=== PATIENT | male | born 1990 | race African-American/Black ===

== ENCOUNTER 2016-10-28 15:43 | Emergency (ER) | payer OTHER ==
[~2016-10-28] VITALS: Ht 185.4 cm; Wt 104.3 kg
[~2016-10-28 15:43] MED LIST: BLM PO; MEDROL DOSEPAK1 PAC PO; VITAMIN D50000 IU PO; ZITHROMAX Z PA250 MG PO
[2016-10-28 17:18] VITALS: BP 121/80
[2016-10-28] MEDS ORDERED: BROMFED DM COU118 M1 PO (17:30)
--- NOTE | 2016-10-28 17:30 | ED DYSPNEA/ASTHMA COMPLAINT ---
History of Present Illness General Chief Complaint: Upper Respiratory Sx/Fever Stated Complaint: COUGH AND CONGESTION Source: patient Exam Limitations: no limitations Vital Signs & Intake/Output Vital Signs & Intake/Output Vital Signs Date Time Temp Pulse Resp B/P Pulse O2 O2 Flow FiO2 Ox Delivery Rate 10/28 1718 97.9 80 20 121/80 98 Room Air 10/28 1552 97.8 82 16 122/75 97 Room Air Allergies Coded Allergies: NO KNOWN ALLERGIES (05/19/14) Reconcile Medications Albuterol Sulfate (Proventil Hfa) 90 MCG HFA.AER.AD 2 PUF INH Q4 sob Azithromycin (Zithromax) 250 MG TABLET 1 DP PO AD bronchitis 2 the first day followed by 1 for days 2-5 Brompheniramine/Pseudoephed/Dm (Bromfed Dm Cough Syrup) 2 MG-30 MG-10 MG/5 ML SYRUP 5-10 ML PO Q4-6 PRN PRN cough Prednisone (Deltasone) 20 MG TABLET 1 TAB PO BID BRONCHITIS Triage Note: PT STATES HE HAS HAD A COUGH AND COLD FOR 2 WEEKS. PT STATES HE IS COUGHING UP GREEN SPUTUM. PT STATSE ON AND OFF FEVERS. Triage Nurses Notes Reviewed? yes Onset: Abrupt Duration: day(s):, constant, continues in ED Timing: recent history HPI: 26-year-old male comes into emergency room with complaints of cough, yellow mucus production, runny nose, and wheezing has been going on for the past week. Denies any vomiting. Denies any other associated symptoms. Denies any history of smoking. Nothing seems to make the symptoms better or worse. Past History Travel History Traveled to [place] past 21 day No Medical History Any Pertinent Medical History? see below for history Neurological: NONE EENT: NONE Cardiovascular: NONE Respiratory: NONE Gastrointestinal: NONE Hepatic: NONE Renal: NONE Musculoskeletal: NONE Psychiatric: NONE Endocrine: NONE Blood Disorders: NONE Cancer(s): NONE REFINER OPERATOR/Reproductive: NONE Tetanus Vaccine: 03/27/15 Surgical History Surgical History: N Psychosocial History What is your primary language Turkmen Tobacco Use: Never used ETOH Use: occasional use Illicit Drug Use: denies illicit drug use Family History Hx Contributory? No Review of Systems Review of Systems Constitutional: Reports: no symptoms. EENTM: Reports: see HPI. Respiratory: Reports: see HPI. Cardiovascular: Reports: no symptoms. GI: Reports: no symptoms. Genitourinary: Reports: no symptoms. Musculoskeletal: Reports: no symptoms. Skin: Reports: no symptoms. Neurological/Psychological: Reports: no symptoms. Hematologic/Endocrine: Reports: no symptoms. Immunologic/Allergic: Reports: no symptoms. All Other Systems: Reviewed and Negative Physical Exam Physical Exam General Appearance: well developed/nourished, no apparent distress, alert Head: atraumatic, normal appearance Eyes: Bilateral: normal appearance, EOMI. Ears, Nose, Throat: normal pharynx, normal ENT inspection Neck: normal inspection Respiratory: no respiratory distress, decreased breath sounds, rhonchi Cardiovascular: regular rate/rhythm Extremities: normal inspection Neurologic/Psych: awake, alert, oriented x 3, normal gait, normal mood/affect Skin: intact, normal color Core Measures ACS in differential dx? No Severe Sepsis Present: No Septic Shock Present: No Progress Differential Diagnosis: asthma, AMI, bronchitis, costochondritis, CHF, COPD, musculoskeletal pain, pericarditis, pulmonary embolism, pneumonia, pneumothorax, rib fracture, unstable angina Plan of Care: Current Medications Sig/Amy Start time Last Medication Dose Stop Time Status Admin Albuterol Sulfate 3 ML ONCE ONE 10/28 1729 AC (Proventil) 10/28 1730 Ipratropium [place] 2.5 ML ONCE ONE 10/28 1729 AC (Atrovent) 10/28 1730 Prednisone 60 MG ONCE ONE 10/28 1729 AC 10/28 1730 Initial ED EKG: none Departure Departure Disposition: HOME OR SELF CARE Condition: Stable Clinical Impression Primary Impression: Bronchitis Referrals: PIERRE THOMAS APRN (PCP/Family) Additional Instructions: Take azithromycin, albuterol, Bromfed, and prednisone as prescribed. Follow-up with your regular doctor. Return if any concerns worsening symptoms. Please go over all results of today's visit with your primary care doctor. Contact your primary care doctor to let them know you were here in the emergency room. There may be nonspecific findings which may not be related to your visit today here in the emergency room but may require further evaluation and chronic monitoring by your primary care doctor. If you had a laceration today the chance of foreign body always remains. You should follow-up with your primary care doctor for recheck in 3-5 days for a wound check. If you had an x-ray done there is a chance that a fracture could have been missed on initial read and you should follow-up with your primary care doctor for repeat x-rays if symptoms persist. If your blood pressure was elevated here in the emergency room please have rechecked by her primary care doctor within the next 48 hours by your primary care doctor. If you were prescribed a narcotic here in the emergency room or any type of controlled substances you're not allowed to drive while taking this medication or operate any type of heavy machinery. Narcotics can make you feel lightheaded dizziness nausea and can cause constipation. You may need to tack picker a stool softener. Thank you for choosing [facility] emergency room. Please return to the emergency room immediately if you have any other concerns worsening of symptoms. Departure Forms: Customer Survey General Discharge Information Prescriptions: Current Visit Scripts Brompheniramine/Pseudoephed/Dm (Bromfed Dm Cough Syrup) 5-10 ML PO Q4-6 PRN PRN cough #120 ML Albuterol Sulfate (Proventil Hfa) 2 PUF INH Q4 #1 INHAL Azithromycin (Zithromax) 1 DP PO AD #6 TAB 2 the first day followed by 1 for days 2-5 Prednisone (Deltasone) 1 TAB PO BID #8 MG Comments 10/28/2016 6:35:50 PM Patient clinically looks well. Nontoxic-appearing. Patient feels better after nebulizer treatment. Lungs sounds clear after nebulizer treatment. Symptoms most consistent with bronchitis. Return if any other concerns. Patient understands and agrees with plan of care. Critical Care Note Critical Care Note Critical Care Time: non-applicable
[2016-10-28] MEDS ORDERED: PROVENTIL HFA6.7 GM INH (17:31)
[2016-10-28] MEDS ORDERED: DELTASONE20 MG PO (17:31)
[2016-10-28] MEDS ORDERED: ZITHROMAX250 M2 PO (17:31)
== END 2016-10-28 18:02 ==
LOC: ERH 15:43
DX: J40 Bronchitis, not specified as acute or chronic (principal)
CPT/HCPCS: 1263

== ENCOUNTER 2018-05-14 04:59 | Emergency (ER) | payer OTHER ==
[~2018-05-14 04:59] MED LIST changes: +AMOXICILLIN875 M1 PO; +BROMFED DM COU118 M1 PO; +DELTASONE20 MG PO; +HYDROCODON-ACE1 EAC2 PO; +IBUPROFEN800 M1 PO; +PROVENTIL HFA6.7 GM INH; +ZITHROMAX250 M2 PO
--- NOTE | 2018-05-14 05:22 | ED GI/GU/ABDOMINAL COMPLAINT ---
History of Present Illness General Chief Complaint: Abdominal Pain/Flank Pain Stated Complaint: ABD PAIN Source: patient Exam Limitations: no limitations Vital Signs & Intake/Output Vital Signs & Intake/Output . Allergies Coded Allergies: NO KNOWN ALLERGIES (05/19/14) Reconcile Medications Albuterol Sulfate (Proventil Hfa) 90 MCG HFA.AER.AD 2 PUF INH Q4 sob Amoxicillin 875 MG TABLET 1 TAB PO BID dental pain Azithromycin (Zithromax) 250 MG TABLET 1 DP PO AD bronchitis 2 the first day followed by 1 for days 2-5 Brompheniramine/Pseudoephed/Dm (Bromfed Dm Cough Syrup) 2 MG-30 MG-10 MG/5 ML SYRUP 5-10 ML PO Q4-6 PRN PRN cough Ciprofloxacin HCl (Cipro) 500 MG TABLET 1 TAB PO BID INFECTION Diphenoxylate HCl/Atropine (Lomotil 2.5-0.025 MG Tablet) 2.5 MG-0.025 MG TABLET 1 TAB PO 4 TIMES/DAY diarrhea twenty... [id number] Hydrocodone/Acetaminophen (Hydrocodon-Acetaminophen 5-325) 5 MG-325 MG TABLET 1-2 TAB PO Q4-6 PRN PRN pain Ibuprofen 800 MG TABLET 1 TAB PO TID pain Metronidazole (Flagyl) 500 MG TABLET 1 TAB PO 4X A DAY INFECTION Ondansetron (Zofran Odt) 4 MG TAB.RAPDIS 1 TAB SL TID PRN NAUSEA Prednisone (Deltasone) 20 MG TABLET 1 TAB PO BID BRONCHITIS Triage Nurses Notes Reviewed? yes Onset: Gradual Duration: day(s): Timing: recent history Quality/Severity: cramping Location: epigastric Radiation: no radiation Activities at Onset: eating Modifying Factors: Worsens With: palpation. Associated Symptoms: abdominal pain, diarrhea, nausea/vomiting HPI: 27 yo gentleman presents with 1 week history of diarrhea - up to 6 times per day - with mild nausea, no vomiting or fever. He notes the symptoms began shortly after eating, "some bad [employer] chicken." He has no chest pain, dysuria, dyspnea, dizziness. He is otherwise well. Past History Travel History Traveled to [place] past 21 day No Medical History Any Pertinent Medical History? see below for history Neurological: NONE EENT: NONE Cardiovascular: NONE Respiratory: NONE Gastrointestinal: NONE Hepatic: NONE Renal: NONE Musculoskeletal: NONE Psychiatric: NONE Endocrine: NONE Blood Disorders: NONE Cancer(s): NONE [employer]/Reproductive: NONE Tetanus Vaccine: 03/27/15 Surgical History Surgical History: N Psychosocial History What is your primary language Romansh Family History Hx Contributory? No Review of Systems Review of Systems Constitutional: Reports: no symptoms. EENTM: Reports: no symptoms. Respiratory: Reports: no symptoms. Cardiovascular: Reports: no symptoms. GI: Reports: no symptoms. Genitourinary: Reports: no symptoms. Musculoskeletal: Reports: no symptoms. Skin: Reports: no symptoms. Neurological/Psychological: Reports: no symptoms. Hematologic/Endocrine: Reports: no symptoms. Immunologic/Allergic: Reports: no symptoms. All Other Systems: Reviewed and Negative Physical Exam Physical Exam General Appearance: well developed/nourished, mild distress Head: atraumatic, normal appearance Eyes: Bilateral: normal appearance. Ears, Nose, Throat, Mouth: hearing grossly normal, moist mucous membrane Neck: normal inspection, supple, full range of motion Respiratory: normal breath sounds, chest non-tender, no respiratory distress, quiet respiration, lungs clear Cardiovascular: regular rate/rhythm Gastrointestinal: normal bowel sounds, soft, mild mid epigastric tenderness to palpation. no amaya's sign. no rlq tenderness Back: normal inspection Extremities: normal range of motion Neurologic/Psych: no motor/sensory deficits, awake, alert, oriented x 3 Skin: intact, normal color, warm/dry Core Measures ACS in differential dx? No Sepsis Present: No Sepsis Focused Exam Completed? No Progress Differential Diagnosis: food poisoning, viral gastro vs other. Plan of Care: Orders Procedure Date/time Status LIPASE 05/14 508 Complete HEPATIC FUNCTION PANEL 05/14 508 Complete CBC WITHOUT DIFFERENTIAL 05/14 508 Complete BASIC METABOLIC PANEL 05/14 508 Complete AMYLASE 05/14 508 Complete Laboratory Tests 05/14/18 0537: Anion Gap 11, Estimated GFR > 60, BUN/Creatinine Ratio 13.8, Glucose 103 H, Calcium 9.5, Total Bilirubin 0.7, Direct Bilirubin 0.2, AST 20, ALT 32, Alkaline Phosphatase 56, Total Protein 7.5, Albumin 4.1, Amylase 65, Lipase 63, CBC w Diff NO MAN DIFF REQ, RBC 4.98, MCV 86.1, MCH 29.2, MCHC 33.9, RDW 14.1, MPV 8.2 , Gran % 62.6, Lymphocytes % 22.4, Monocytes % 9.1, Eosinophils % 5.2 H, Basophils % 0.7, Absolute Granulocytes 5.2, Absolute Lymphocytes 1.8, Absolute Monocytes 0.8 H, Absolute Eosinophils 0.4, Absolute Basophils 0.1 Initial ED EKG: none Departure Departure Disposition: HOME OR SELF CARE Condition: Stable Clinical Impression Primary Impression: Food poisoning Secondary Impressions: Abdominal pain, Diarrhea Referrals: Maura Hill APRN (PCP/Family) Departure Forms: Customer Survey General Discharge Information Prescriptions: Current Visit Scripts Ciprofloxacin HCl (Cipro) 1 TAB PO BID #14 TAB Metronidazole (Flagyl) 1 TAB PO 4X A DAY #28 TAB Ondansetron (Zofran Odt) 1 TAB SL TID PRN NAUSEA #10 TAB Diphenoxylate HCl/Atropine (Lomotil 2.5-0.025 MG Tablet) 1 TAB PO 4 TIMES/DAY #20 TAB twenty... [id number] Comments 05/14/18, 6:40am... pt with benign labs, resting comfortably after supportive medications.... given his diarrhea (6x a day x one week) in the context of the likely food poisoning (chicken at [employer]), will treat with cipro/flagyl and supportive medications... no rlq or ruq tenderness to suggest appy or gall bladder disease.... close follow up advised.
[2018-05-14 05:48] LABS: ABSOLUTE BASOPHIL COUNT 0.1 /CUMM (0.0-0.2); ABSOLUTE EOSINOPHIL COUNT 0.4 /CUMM (0.0-0.7); ABSOLUTE GRANULOCYTE CT 5.2 /CUMM (1.4-6.5); ABSOLUTE LYMPH COUNT 1.8 /CUMM (1.2-3.4); ABSOLUTE MONOCYTE COUNT 0.8 /CUMM (0.10-0.60); BASOPHIL % 0.7 % (0.0-2.0); EOSINOPHIL % 5.2 % (0-5); GRANULOCYTE % 62.6 % (42.2-75.2); HEMATOCRIT 42.9 % (42-52); MEAN CORPUSCULAR HGB 29.2 PG (27.0-31.0); MEAN CORPUSCULAR HGB CONC 33.9 G/DL (33.0-37.0); MEAN CORPUSCULAR VOLUME 86.1 FL (80.0-94.0); MEAN PLATELET VOLUME 8.2 FL (7.4-10.4); PLATELET COUNT 192 /CUMM (130-400); RBC DISTRIBUTION WIDTH 14.1 % (11.5-14.5); RED BLOOD CELL CT 4.98 /CUMM (4.70-6.10); WHITE BLOOD CELL COUNT 8.3 /CUMM (4.8-10.8)
[2018-05-14] MEDS ORDERED: CIPRO500 M1 PO (06:38)
[2018-05-14] MEDS ORDERED: FLAGYL500 MG PO (06:38)
[2018-05-14] MEDS ORDERED: ZOFRAN ODT4 M1 SL (06:38)
[2018-05-14] MEDS ORDERED: LOMOTIL 2.5-0.1 EACH PO (06:40)
[2018-05-14 06:53] VITALS: BP 118/70
== END 2018-05-14 06:53 ==
LOC: ERH 04:59
PROVIDERS: Pediatrics
DX: T62.91XA Toxic effect of unspecified noxious substance eaten as food, accidental (unintentional), initial encounter (principal); R10.13 Epigastric pain; R19.7 Diarrhea, unspecified